=== PATIENT | female | born 1960 | race African-American/Black ===

== ENCOUNTER 2024-07-31 09:46 | Emergency (ER) | payer OTHER ==
[2024-07-31 09:52] VITALS: RESP 18; TEMP 97.6; BMI 26.9
[2024-07-31] MEDS: LACTATED RINGERS SOLUTION 1000 ML INFUS.BAG IV ONE (11:29)
[2024-07-31 12:05] LABS: VENOUS BASE EXCESS -4.9 mmol/L (-2-2); VENOUS O2 SATURATION 76.1 % (70-80); VENOUS PCO2 44.5 mmHg (38-52); VENOUS PH 7.301 (7.310-7.410)
[2024-07-31 12:11] LABS: ABSOLUTE IMMATURE GRANULOCYTES 0.02 x10^3/uL (0.0-0.031); BASOPHILS # 0.04 x10^3/uL (0.01-0.08); EOSINOPHIL % 1.1 % (0.7-5.8); EOSINOPHILS # 0.07 x10^3/uL (0.04-0.36); HEMATOCRIT 40.6 % (34.1-44.9); MEAN CELL VOLUME 86.6 fl (79.4-94.8); MEAN PLT VOLUME 11.9 fl (9.4-12.3); MONOCYTE # 0.44 x10^3/uL (0.24-0.86); MONOCYTE % 7.2 % (4.7-12.5); PLATELET COUNT 178 x10^3/uL (182-369); RDW 11.9 % (12.4-16.4)
[2024-07-31 12:22] LABS: CHLORIDE 100 mmol/L (98-107); POTASSIUM 4.3 mmol/L (3.5-5.1); SODIUM 134 mmol/L (136-145)
[2024-07-31 12:24] LABS: CALCIUM 10.4 mg/dL (8.5-10.1)
[2024-07-31 12:25] LABS: ANION GAP 10 mmol/L (4-13); CO2 24 mmol/L (21-32)
[2024-07-31 12:27] LABS: SGOT/AST 16 U/L (15-37); SGPT/ALT 22 U/L (13-61)
[2024-07-31 12:28] LABS: CREATININE 1.7 mg/dL (0.55-1.3); GLUCOSE,RANDOM 410 mg/dL (74-106)
[2024-07-31 12:29] LABS: BILIRUBIN,TOTAL 0.5 mg/dL (0.2-1); TOT PROT 7.6 g/dl (6.4-8.2)
[2024-07-31 12:30] LABS: ALK PHOS 112 U/L (45-117)
[2024-07-31 12:46] LABS: PH,URINE 5.5 (5.0-8.0); URINE APPEARANCE CLEAR; URINE BILIRUBIN NEGATIVE (NEGATIVE); URINE COLOR YELLOW; URINE GLUCOSE (UA) 3+ (NEGATIVE); URINE KETONE 1+ (NEGATIVE); URINE LEUK ESTERASE NEGATIVE (NEGATIVE); URINE NITRITE NEGATIVE (NEGATIVE); URINE PROTEIN NEGATIVE (NEGATIVE); URINE UROBILINOGEN 0.2 mg/dL (0.2-1.0)
[2024-07-31 14:27] VITALS: BP 141/88; PULSE 75
== END 2024-07-31 15:07 | disposition home or self-care (01) ==
LOC: JER 09:46
DX: E11.65 Type 2 diabetes mellitus with hyperglycemia (principal); R35.89 Other polyuria; E86.0 Dehydration; R63.1 Polydipsia; R94.31 Abnormal electrocardiogram [ECG] [EKG]; Z94.0 Kidney transplant status
CPT/HCPCS: 36415; 80053; 81003; 82010; 82803; 82962; 85025; 87086; 93005; 93010; 99284-25